=== PATIENT | female | born 1970 | race Caucasian/White ===

== ENCOUNTER → 2016-06-25 | Outpatient (CLI) | payer OTHER ==
[2016-06-25 13:14] LABS: ALT/SGPT 21 U/L (12-78); BLOOD UREA NITROGEN 31 mg/dl (7-18); BUN/CREATININE RATIO 25.6 (10-20); CALCIUM 8.9 mg/dl (8.5-10.1); CARBON DIOXIDE 27 mmol/L (21-32); CHLORIDE 104 mmol/L (98-107); GLUCOSE 71 mg/dl (70-99); POTASSIUM 4.6 mmol/L (3.5-5.1); SODIUM 142 mmol/L (136-145); URIC ACID 4.1 mg/dl (2.6-7.2)
[2016-06-25 13:20] LABS: HEMATOCRIT 63.1 % (37-47); MEAN CELL VOLUME 116.2 fL (80-100); MEAN CORPUSCULAR HEMOGLOBIN 41.1 pg (25-34); MEAN CORPUSCULAR HGB CONC 35.3 g/dl (32-36); MEAN PLATELET VOLUME 13.5 fL (7.4-10.4); PLATELET COUNT 92 K/uL (130-400); RED BLOOD COUNT 5.43 M/uL (4.2-5.4); WHITE BLOOD COUNT 4.17 K/uL (4.8-10.8)
[2016-06-25 13:21] LABS: BASO % 0.7 %; BASO ABS # 0.03 K/uL (0-0.2); COMPLETE YES; EOS % 1.4 %; IG% 0.2 %; LYMPH % 15.1 %; LYMPH ABS # 0.63 K/uL (1.2-3.4); MONO % 4.3 %; NEUT % 78.3 %
[2016-06-25 13:27] LABS: ALB/GLOB RATIO 0.6 (0.9-2); ALKALINE PHOSPHATASE 96 U/L (45-117); AST/SGOT 34 U/L (15-37)
== END | disposition home or self-care (01) ==
LOC: C.LABPBG 09:17
PROVIDERS: ATTEND Internal Medicine
DX: D69.6 Thrombocytopenia, unspecified (principal); M10.9 Gout, unspecified

== ENCOUNTER → 2016-06-30 | Outpatient (CLI) | payer OTHER | END | disposition home or self-care (01) | LOC: C.LABPBG 15:11 | PROVIDERS: ATTEND Internal Medicine | DX: D69.6 Thrombocytopenia, unspecified (principal) ==

== ENCOUNTER → 2016-08-11 | Outpatient (CLI) | payer OTHER | END | disposition home or self-care (01) | LOC: C.LABPBG 14:06 | PROVIDERS: ATTEND Internal Medicine | DX: E03.9 Hypothyroidism, unspecified (principal) ==

== ENCOUNTER → 2017-08-10 | Outpatient (CLI) | payer OTHER ==
[2017-08-10 18:12] LABS: BLOOD UREA NITROGEN 51 mg/dl (7-18); CALCIUM 8.6 mg/dl (8.5-10.1); CARBON DIOXIDE 35 mmol/L (21-32); GLUCOSE 114 mg/dl (70-99); POTASSIUM 3.8 mmol/L (3.5-5.1); SODIUM 139 mmol/L (136-145)
== END | disposition home or self-care (01) ==
LOC: C.LABPBG 10:36
PROVIDERS: ATTEND Internal Medicine
DX: I50.9 Heart failure, unspecified (principal); I27.83 Eisenmenger's syndrome

== ENCOUNTER 2018-11-15 10:47 | Inpatient (IN) ==
[2018-11-15] MEDS ORDERED: ONDANSETRON INJ 2 MG/ML 2 ML VIAL IV STA (11:22)
[2018-11-15 11:59] LABS: Hematocrit (blood only) 69.4 % (37-47); Hemoglobin 24.5 g/dL (12.0-16.0); Mean Corpuscular Hgb Conc 35.3 g/dL (32-36); Mean Corpuscular Volume 114.3 fL (80-100); RDW Coefficient of Variation 16.4 % (11.5-14.5); RDW Standard Deviation 69.5 fL (36.4-46.3); Red Blood Count 6.07 M/uL (4.2-5.4); White Blood Count 3.86 K/uL (4.8-10.8)
[2018-11-15 12:05] LABS: Albumin Level 3.1 gm/dl (3.4-5.0); BUN Creatinine Ratio 21.4 (10-20); Calcium 9.3 mg/dl (8.5-10.1); Creatinine Clr Calc Pharmacy 32.7 ml/min; Est GFR (African American) 39.8; Est GFR (Non-African American) 34.3; Magnesium 2.4 mg/dl (1.8-2.4)
--- NOTE | 2018-11-15 12:06 | Emergency Department Note ---
Entered by Lanette Cabrera acting as a scribe for History of Present Illness General Chief complaint: Illness Time Seen by Provider: 11/15/18 11:19 Source: patient, family and other (nursing staff) History of Present Illness Provider complaint: respiratory distress Onset (ago): hour(s) (today) Location: chest Pain Consistency: + intermittent Quality: + other (respiratory distress) Associated symptoms: + denies other symptoms (abdominal pain) and + other (dizziness) The patient is a 48 year old female who presents to the Emergency Department with complaints of respiratory distress today. Per family, the patient complained of dizziness but did not have abdominal pain today. Per nursing staff, the patient has a history of a hole in her heart and heart failure. Nursing staff states that the patient had 2 episodes of respira tory distress today and projectile vomited once. Her family states that Dr. Hanley does not think that the patient needs to follow with a curling machine operator anymore as nothing can be done. Per family, the patient has a VSD and a history of pulmonary hypertension. Per family, the patient has a history of 2 cardiac catheterizations but did not get any stents placed. The patient denies a history of abdominal surgeries. Home Medications Home Medications Medication Instructions Recorded Confirmed Type allopurinol 300 mg PO DAILY 11/15/18 11/15/18 History cholecalciferol (vitamin D3) 2,000 unit PO DAILY 11/15/18 11/15/18 History [Vitamin D3] clindamycin HCl 150 mg PO DIRECTED 11/15/18 11/15/18 History levothyroxine 100 mcg PO DAILY 11/15/18 11/15/18 History multivitamin 1 tab PO DAILY 11/15/18 11/15/18 History sodium chloride [Saline Nasal] 1 spray INTRANASAL DAILY 11/15/18 11/15/18 History torsemide 20 mg PO DAILY 11/15/18 11/15/18 History Allergies Allergy/AdvReac Type Severity Reaction Status Date / Time Penicillins Allergy Rash Unverified 11/15/18 12:04 Past Med/Surg History Medical History Pulmonary hypertension (Acute) Down syndrome (Chronic) VSD (ventricular septal defect) (Chronic) Pulmonary hyperinflation (Resolved) Social History Preferred Language: Yakut Current Living Situation: Family Feels Safe at Home: Yes Smoking Status: Never smoker Review of Systems See HPI for pertinent positives & negatives. and A total of 10 systems reviewed and were otherwise negative Physical Exam Vital Signs Vital Signs - 24 hr 11/15/18 11:00 11/15/18 11:58 Temperature 36.4 C L Temperature Source Axillary Sepsis Recent Fever Within 48 Hours No Sepsis New/Unexplained Change in Mental Status No Sepsis Action Taken by Nursing No Action Required Pulse Rate 63 Pulse Rate [Apical] 63 Pulse Rhythm Regular Pulse Rhythm [Apical] Regular Pulse Strength Normal Pulse Strength [Apical] Normal Respiratory Rate 22 18 Respiratory Effort / Characteristics Non-Labored Spontaneous Non-Labored Spontaneous Respiratory Depth Normal Normal Respiratory Pattern Regular Regular Blood Pressure 124/76 Blood Pressure [Right Arm] 115/75 Blood Pressure Mean 92 Blood Pressure Mean [Right Arm] 88 Blood Pressure Position Sitting Blood Pressure Position [Right Arm] Sitting Pulse Oximetry 58 L 63 L Oxygen Delivery Method Room Air Room Air GENERAL: Patient is awake and alert. She is somewhat anxious appearing but appears to be comfortable. EYES: The conjunctivae are clear. The pupils are round and reactive. EARS, NOSE, MOUTH AND THROAT: The nose is without any evidence of any deformity. Mucous membranes are moist tongue is midline. Central cyanosis was noted especially around the perioral region. NECK: The neck is nontender and supple. RESPIRATORY: Diminished breath sounds are noted throughout. There are rales at both bases. CARDIOVASCULAR: Regular rate and rhythm was noted to auscultation. There was a systolic murmur suggested. GASTROINTESTINAL: The abdomen is soft. Bowel sounds are present in all quadrants. Abdomen is nontender MUSCULOSKELETAL/EXTREMITIES: There is no evidence of gross deformity full range of motion is noted in the hips and shoulders SKIN: There is no obvious evidence of any rash. Venous stasis and chronic cyanosis was noted in both upper and lower extremities. Trace pedal edema was noted. NEUROLOGIC: Patient is awake and alert. She is oriented to person place and situation. She appears to be at her baseline mental status according to her parents. Course 1118: The patient was evaluated in room C10. A history and physical were performed. 1215: I updated the patient's family who verbalized agreement and understanding of the treatment plan. 1224: I discussed the patient's case with Dr. Rafaela Jaimes who will evaluate the patient for further management. Consultations Consultation #1: Dr. Rafaela Jaimes Time: 12:24 Administered Medications Discontinued Medications Ondansetron HCl (Zofran) 4 mg IV NOW STA Stop: 11/15/18 11:23 Last Admin: 11/15/18 11:56 Dose: Not Given Documented by: [id number] Medical Decision Making Differential Diagnosis Differential diagnosis: Etiologies such as infections, reactive airway disease, COPD, pneumonia, pleural effusion, pulmonary edema, ARDS, pneumothorax, CHF, cardiac ischemia, cardiac tamponade, dysrhythmia, anemia, pulmonary embolism, musculoskeletal, gastrointestinal process, as well as others were entertained. . Medical Records Attestation: I reviewed the patient's medical records. Home Medications Current Medication List: was personally reviewed by me Laboratory Data Attestation: I reviewed the patient's lab results. Result diagrams: 11/15/18 11:20 11/15/18 11:20 Lab Results 11/15/18 11/15/18 11/15/18 Range/Units 11:20 11:20 11:20 WBC 3.86 L (4.8-10.8) K/uL RBC 6.07 H (4.2-5.4) M/uL Hgb 24.5 H (12.0-16.0) g/dL Hct 69.4 H (37-47) % MCV 114.3 H (80-100) fL MCH 40.4 H (25-34) pg MCHC 35.3 (32-36) g/dL RDW Std Deviation 69.5 H (36.4-46.3) fL RDW Coeff of Jenny 16.4 H (11.5-14.5) % Plt Count 53 L (130-400) K/uL Absolute Nucleated RBC 0.02 H (0-0) K/uL Nucleated RBC % (auto) 0.4 % Neutrophils % (Manual) 90.0 % Lymphocytes % (Manual) 6.0 % Monocytes % (Manual) 1.0 % Eosinophils % (Manual) 3.0 % Neutrophils # (Manual) 3.47 (1.4-6.5) K/uL Total Absolute Neuts 3.47 (1.4-6.5) K/uL Lymphocytes # (Manual) 0.23 L (1.2-3.4) K/uL Total Abs Lymphocytes 0.23 L (1.2-3.4) K/uL Monocytes # (Manual) 0.04 L (0.11-0.59) K/uL Eosinophils # (Manual) 0.12 (0-0.5) K/uL Giant Platelets 1+ Macrocytosis Present PT Cancelled INR Cancelled APTT Cancelled PTT Ratio Cancelled Sodium 140 (136-145) mmol/L Potassium 5.0 (3.5-5.1) mmol/L Chloride 105 (98-107) mmol/L Carbon Dioxide 24 (21-32) mmol/L Anion Gap 11.0 (3-11) BUN 37 H (7-18) mg/dl Creatinine 1.73 H (0.6-1.2) mg/dl Est Cr Clr Drug Dosing 32.7 ml/min Est GFR ( Amer) 39.8 Est GFR (Non-Af Amer) 34.3 BUN/Creatinine Ratio 21.4 H (10-20) Glucose 124 H (70-99) mg/dl Calcium 9.3 (8.5-10.1) mg/dl Magnesium 2.4 (1.8-2.4) mg/dl Total Bilirubin 0.8 (0.2-1) mg/dl AST 35 (15-37) U/L ALT 34 (12-78) U/L Alkaline Phosphatase 124 H (45-117) U/L Troponin I 0.029 (0-0.045) ng/ml NT-Pro-B Natriuret Pep 3136 H (0-450) pg/ml Total Protein 7.6 (6.4-8.2) gm/dl Albumin 3.1 L (3.4-5.0) gm/dl Globulin 4.5 H (2.5-4.0) gm/dl Albumin/Globulin Ratio 0.7 L (0.9-2) Specimen Hemolysis Imaging Data Radiologist's Impression: Radiology results as stated below per my review and the radiologist's interpretation: SINGLE VIEW CHEST CLINICAL HISTORY: Dyspnea. FINDINGS: An AP, portable, upright chest radiograph is obtained. No prior studies are available for comparison at the time of dictation. The examination is degraded by portable technique and patient rotation. The heart appears enlarged. Mild atherosclerotic calcification is noted in the thoracic aorta. There is pulmonary vascular congestion. Airspace opacities are seen in the lower lobes. No large pleural effusion or pneumothorax is seen. The bony thorax is grossly intact. IMPRESSION: 1. The heart appears mildly enlarged and there is evidence of pulmonary vascular congestion. 2. Airspace opacities are present in the lower lobes. A component of interstitial edema is favored. Correlate clinically for evidence of a superimposed infectious/inflammatory pneumonitis. Electronically signed by: Dre Hidalgo M.D. 11/15/2018 12:10 PM ECG Data Attestation: I personally reviewed and interpreted this ECG as follows: Indication: SOB/dyspnea Rate (beats per minute): 65 Rhythm: sinus bradycardia Findings: + other (diffuse t wave flattening) and + 1st degree AV block; no PAC, no PVC and no ectopy Comparison ECG Date: no prior available Blood Pressure Blood Pressure Findings: Normal blood pressure MDM Narrative The patient is a 48-year-old female who presented to the emergency department with her parents for an evaluation of shortness of breath. The patient has a history of a VSD with decompensated heart failure because of this. She presented to the emergency department very hypoxic and cyanotic. She was treated with IV Lasix in the emergency department. I discussed the patient's laboratory and radiographic studies with her and her parents. I reviewed the patient's laboratory results would suggest that she does have a long history of underlying hypoxia given her elevated hemoglobin. I would wonder if the patient could be medically managed any further. For this reason I discussed her case with the on-call [facility] hospitalist. They have agreed to evaluate the patient in the emergency department for possible further evaluation and inpatient management. Impression & Plan Pulmonary edema, Hypoxia Discharge Plan Visit Data Chief Complaint: Illness ED Provider: Jose Griggs Discharge Problem: Pulmonary edema, Hypoxia Patient Disposition: Being Evaluated by Hospitalist Forms Stand Alone Forms: [facility] Prescriptions Prescriptions: No Action multivitamin Tablet 1 tab PO DAILY RF: 0 torsemide 20 mg tablet 20 mg PO DAILY RF: 0 clindamycin HCl 150 mg Capsule 150 mg PO DIRECTED RF: 0 levothyroxine 100 mcg tablet 100 mcg PO DAILY RF: 0 allopurinol 300 mg tablet 300 mg PO DAILY RF: 0 sodium chloride [Saline Nasal] 0.65 % Aerosol,Wellpinit 1 spray INTRANASAL DAILY RF: 0 cholecalciferol (vitamin D3) [Vitamin D3] 2,000 unit Capsule 2,000 unit PO DAILY RF: 0 Referrals Referrals: Sandeep Hanley MD [Primary Care Provider] - Discharge Problem: Pulmonary edema Qualifiers: Chronicity: acute Qualified Code(s): J81.0 - Acute pulmonary edema The scribe's documentation has been prepared under my direction and personally reviewed by me in its entirety. I confirm that the note above accurately reflects all work, treatment, procedures, and medical decision making performed by me.
[2018-11-15 12:07] LABS: Albumin Globulin Ratio 0.7 (0.9-2); Bilirubin,Total 0.8 mg/dl (0.2-1); Globulin 4.5 gm/dl (2.5-4.0); Total Protein 7.6 gm/dl (6.4-8.2); Troponin I 0.029 ng/ml (0-0.045)
[2018-11-15 12:10] LABS: ALC (manual) 0.23 K/uL (1.2-3.4); Eosinophils # (manual) 0.12 K/uL (0-0.5); Giant Platelets 1+; Lymphocytes # (manual) 0.23 K/uL (1.2-3.4); Macrocytosis Present; Monocytes # (manual) 0.04 K/uL (0.11-0.59); Nucleated RBC # (auto) 0.02 K/uL (0-0); Nucleated RBC % (auto) 0.4 %; Platelet Count 53 K/uL (130-400)
--- NOTE | 2018-11-15 12:12 | XRay Report ---
SINGLE VIEW CHEST CLINICAL HISTORY: Dyspnea. FINDINGS: An AP, portable, upright chest radiograph is obtained. No prior studies are available for c omparison at the time of dictation. The examination is degraded by portable technique and patient rot ation. The heart appears enlarged. Mild atherosclerotic calcification is noted in the thoracic aorta . There is pulmonary vascular congestion. Airspace opacities are seen in the lower lobes. No large pl eural effusion or pneumothorax is seen. The bony thorax is grossly intact. IMPRESSION: 1. The heart appears mildly enlarged and there is evidence of pulmonary vascular congestion. 2. Airspace opacities are present in the lower lobes. A component of interstitial edema is favored. C orrelate clinically for evidence of a superimposed infectious/inflammatory pneumonitis. Electronically signed by: Dre Hidalgo M.D. 11/15/2018 12:10 PM
[2018-11-15] MEDS ORDERED: FUROSEMIDE 40 MG in SYRINGE 0 ML IV ONE (12:14)
--- NOTE | 2018-11-15 14:29 | History & Physical Report ---
Date of Service November 15, 2018 Assessment & Plan (1) Pulmonary edema: Likely related to progressive VSD Improving s/p IVF in the ED Turosemide dosing had been QOD due to concerns about dehydration on QD, possibly move to decreased dosing at QD vs need for stable dosing QD Can determine s/p ECHO, pending Will use turosemide 20mg QD for now (20mg OQD outpt) (2) Elevated troponin: Likely related to demand ischemia from pulmonary edema EKG neg for acute Serial trops pending (3) Hypoxia: Related to above and improving s/p lasix (4) Down's syndrome: Stable Lives with parents Requests DNR/DNI and parents state it is her decision Does not have living will completed and advised them to do so during admission (5) VSD (ventricular septal defect): As noted above (6) Gout: continue home meds (7) Hypothyroid: continue home meds TSH pending (8) Pulmonary HTN: continue home meds (9) DVT prophylaxis: SCDs History of Present Illness Primary Care Provider: Sandeep Hanley MD 48 y/o F c/o SOB. Pt has had a cough for the last few days that has been gra dually worsening. Parents thought it was due to allergies as [place] and pollen has been quite high this year, however it continued to worsen and then today while they were in the car, pt became frankly SOB. They called an ambulance. She did have an episode of emesis today with some abd pain, but none prior to this. Zofran in the ambulance has helped and she no longer has n/v/abd pain. Pt has no prior hx of breathing issues. She does have a known VSD and has been on turosemide for about the last year related to LE swelling. She was initially prescribed for QD dosing, however she became dehydrated with this and it was changed to QOD dosing. Her LE swelling has not been an issue with the decreased dosing. Pt denies fever, chest pain, c/d, LE pain. Pt was given lasix in the ED and is feeling much improved. No longer SOB or even coughing. Allergies Allergy/AdvReac Type Severity Reaction Status Date / Time Penicillins Allergy Rash Unverified 11/15/18 12:04 Home Medications Home Medications Medication Instructions Recorded Confirmed Type allopurinol 300 mg PO DAILY 11/15/18 11/15/18 History cholecalciferol (vitamin D3) 2,000 unit PO DAILY 11/15/18 11/15/18 History [Vitamin D3] clindamycin HCl 150 mg PO DIRECTED 11/15/18 11/15/18 History levothyroxine 100 mcg PO DAILY 11/15/18 11/15/18 History multivitamin 1 tab PO DAILY 11/15/18 11/15/18 History sodium chloride [Saline Nasal] 1 spray INTRANASAL DAILY 11/15/18 11/15/18 History torsemide 20 mg PO DAILY 11/15/18 11/15/18 History Past Med/Surg History Medical History Pulmonary hypertension (Acute) Down syndrome (Chronic) VSD (ventricular septal defect) (Chronic) Pulmonary hyperinflation (Resolved) Family History Grandfather CHF (congestive heart failure) Social History Preferred Language: Malay Current Living Situation: Family Feels Safe at Home: Yes Smoking Status: Never smoker Hx Alcohol Use: Yes (wine once a week) Hx Substance Use: No Review of Systems Review of Systems: Pertinent positives and negatives reviewed in HPI--all others negative Physical Exam Constitutional: WD/WN, vitals as above Eyes: normal visual garcia by confrontation and + anicteric sclerae Neck: normal visual inspection and trachea midline Respiratory: normal respiratory effort; no respiratory distress Auscultation: + crackles (b/l bases) Cardiovascular: Rate/Rhythm: regular rate and regular rhythm Gastrointestinal (Abdomen): Inspection/Auscultation: abdomen not distended Percussion/Palpation: abdomen soft; abdomen nontender Musculoskeletal: Head/Neck/Chest: normocephalic and head atraumatic negative for edema, peripheral pulses intact Skin: Warm and dry Deep red discoloration to face--nose and cheeks, as well as hands and feet into lower LE Neurologic: awake; not confused Speech / Cognition: normal speech Psychiatric: A+Ox3, euthymic affect Results & Data Vital Signs (Past 12 Hours) Vital Signs Temp Pulse Pulse Resp BP BP Pulse Ox 11/15/18 13:35 74 20 135/95 69 L 11/15/18 11:58 63 18 115/75 63 L 11/15/18 11:00 36.4 C L 63 22 124/76 58 L Diagnostic Findings CXR: b/l pulmonary edema ECG Additional Comments: PVCs, bigeminy Code Status & VTE Plan Code Status DNR/DNI per pt Parents are present and state that it is her decision They have never discussed this with pt and she has no living will VTE Prophylaxis Plan VTE Prophylaxis will be ordered: Yes (1) Pulmonary edema Chronicity: acute Qualified Code(s): J81.0 - Acute pulmonary edema
[2018-11-15] MEDS ORDERED: CLINDAMYCIN HCL 150 MG CAP PO SCH (15:35)
[2018-11-15] MEDS ORDERED: ACETAMINOPHEN 325 MG TAB PO PRN (15:35)
[2018-11-15] MEDS ORDERED: MAGNESIUM HYDROXIDE SUSP 30 ML UDC PO PRN (15:35)
[2018-11-15] MEDS ORDERED: ONDANSETRON INJ 2 MG/ML 2 ML VIAL IV PRN (15:35)
[2018-11-15 20:10] LABS: Appearance Urine Clear (Clear); Bacteria Urine Automated Negative (Negative); Bilirubin Urine Negative (Negative); Blood Urine Trace (Negative); Color Urine Yellow; Epithelial Cell Urine Auto >30 /lpf (0-5); Glucose Urine UA Negative (Negative); Ketones Urine Negative (Negative); Leukocyte Esterase Urine Negative (Negative); Nitrite Urine Negative (Negative); Protein Urine 1+ (Negative); RBC Urine Automated 0-4 /hpf (0-4); Specific Gravity Urine 1.015 (1.000-1.030); Urobilinogen Urine Negative (Negative)
[2018-11-16] MEDS: LEVOTHYROXINE SODIUM 100 MCG TABLET PO SCH (06:13)
[2018-11-16 06:37] LABS: Hematocrit (blood only) 64.9 % (37-47); Hemoglobin 23.3 g/dL (12.0-16.0); Mean Corpuscular Volume 112.5 fL (80-100); RDW Coefficient of Variation 16.1 % (11.5-14.5); RDW Standard Deviation 65.5 fL (36.4-46.3); Red Blood Count 5.77 M/uL (4.2-5.4); White Blood Count 5.89 K/uL (4.8-10.8)
[2018-11-16 06:42] LABS: Mean Corpuscular Hgb Conc 35.9 g/dL (32-36); Mean Platelet Volume 11.5 fL (7.4-10.4); Platelet Count 40 K/uL (130-400)
[2018-11-16 07:21] LABS: Basophils # (auto) 0.03 K/uL (0-0.2); Basophils % (auto) 0.5 %; Eosinophils # (auto) 0.02 K/uL (0-0.5); Eosinophils % (auto) 0.3 %; Giant Platelets 1+; Immature Granulocytes # (auto) 0.02 K/uL (0.00-0.02); Immature Granulocytes % (auto) 0.3 %; Lymphocytes # (auto) 0.92 K/uL (1.2-3.4); Lymphocytes % (auto) 15.6 %; Macrocytosis Present; Monocytes # (auto) 0.46 K/uL (0.11-0.59); Monocytes % (auto) 7.8 %; Neutrophils # (auto) 4.44 K/uL (1.4-6.5); Neutrophils % (auto) 75.5 %
[2018-11-16 07:36] LABS: BUN Creatinine Ratio 20.3 (10-20); Calcium 8.7 mg/dl (8.5-10.1); Creatinine Clr Calc Pharmacy 28.1 ml/min; Est GFR (African American) 33.8; Est GFR (Non-African American) 29.1; Potassium 4.8 mmol/L (3.5-5.1)
[2018-11-16] MEDS: TORSEMIDE 10 MG TAB PO SCH (08:37)
[2018-11-16] MEDS: MULTIVITAMIN TAB PO SCH (08:37)
[2018-11-16] MEDS: ALLOPURINOL 300 MG TAB PO SCH (08:37)
[2018-11-16] MEDS: CHOLECALCIFEROL 1,000 UNITS TAB PO SCH (08:38)
--- NOTE | 2018-11-16 09:04 | Hospitalist Progress Note ---
Date of Service November 16, 2018 Assessment & Plan (1) Pulmonary edema: Likely related to progressive VSD Improving s/p IVF in the ED Turosemide dosing had been QOD due to concerns about dehydration on QD, possibly move to decreased dosing at QD vs need for stable dosing QD Can determine s/p ECHO, concern to have possible valvular vegitation Will use turosemide 20mg QD for now (20mg OQD outpt) will have additional dose of lasix 20 mg ivp order ESR and blood cultures will be ordered (2) Elevated troponin: Likely related to demand ischemia from pulmonary edema EKG neg for acute Serial trops pending (3) Hypoxia: Related to above and improving s/p lasix, has vsd with high pulmonary pressures and equilizaiton of pressure in left and right ventricle, will always have a hypoxic saturation (4) Down's syndrome: Stable Lives with parents, they are updated at the bedside Requests DNR/DNI and parents state it is her decision Does not have living will completed and advised them to do so during admission (5) VSD (ventricular septal defect): As noted above (6) Gout: continue home meds (7) Hypothyroid: continue home meds TSH pending (8) Pulmonary HTN: continue home meds (9) DVT prophylaxis: SCDs Subjective this pt is without complaints, she is cyanotic but pleasant, cardiology is concerned about possible valvular abnormality. family is at bedside and updated Review of Systems Constitutional: + fatigue and + weakness Respiratory: no cough, no chest congestion and no dyspnea Cardiovascular: no chest pain and no dyspnea on exertion Gastrointestinal: no abdominal pain, no nausea and no vomiting Musculoskeletal: no joint pain and no swelling Integumentary: no rash and no lesions Physical Exam Constitutional: well developed and average body habitus Eyes: no conjunctival abnormality and no scleral abnormality Neck: normal visual inspection and trachea midline Respiratory: + respiratory distress; + abnormal respiratory effort Auscultation: + crackles and + rales Cardiovascular: Rate/Rhythm: regular rate Heart Sounds: + murmur Gastrointestinal (Abdomen): normal bowel sounds, soft, nontender, no hepatosplenomegaly Musculoskeletal: Extremities: + cyanosis; full ROM of extremities Results & Data Vital Signs (Past 12 Hours) Vital Signs Temp Pulse Pulse Resp BP Pulse Ox 11/16/18 03:27 36.4 C L 74 19 129/82 64 L 11/15/18 23:50 74 L 11/15/18 23:38 36.6 C 73 19 136/85 69 L (1) Pulmonary edema Chronicity: acute Qualified Code(s): J81.0 - Acute pulmonary edema
[2018-11-16] MEDS: SODIUM CHLORIDE 0.65% NA SOLN 45 ML (OCEAN) SCH (09:55)
[2018-11-16] MEDS ORDERED: FUROSEMIDE 20 MG in SYRINGE 0 ML IV ONE (17:45)
--- NOTE | 2018-11-16 18:06 | Cardiology Consultation ---
Date of Consultation November 16, 2018 Assessment & Plan (1) Eisenmenger's syndrome due to congenital ventricular septal defect: When taking torsemide 20 mg daily, she felt lightheaded and on every other day dosing, she became more short of breath. With diuresis here, she has improved symptomatically. Would recommend another dose of IV Lasix this afternoon. When she is discharged in the future, could consider torsemide 20 mg alternating with 10 mg daily. Low-sodium diet. On exam, she is not significantly hypervolemic, but she may benefit from a symptomatic standpoint with further diuresis. Nursing staff was asked to use filter with any type of intravenous administration to filter out air bubbles, which could become systemic given Eisenmenger physiology. (2) VSD (ventricular septal defect): She has uncorrected perimembranous VSD. She has declined aggressive measures in the past according to records. (3) Pulmonary HTN: Severe pulmonary hypertension from VSD, now with Eisenmenger's physiology. She has declined vasodilators in the past. She no longer wanted to follow with adult congenital heart disease physician. She prefers to follow with Dr. Hanley. (4) Pericardial effusion: Likely related to severe pulmonary hypertension. Poor prognosis. (5) Aortic valve disorder: Possible vegetation. Recommend blood cultures and ESR. We discussed potential of undergoing transesophageal echo however she declines. Her mother agrees with her. If she is found to have positive blood cultures, would r ecommend 6 weeks of antibiotic therapy if agreeable by patient and her family. Disposition: Cardiology will continue to follow. Plan of care discussed with Dr. Lopez of the primary hospitalist service. Highly complex medical issues. Thank you for allowing me to participate in the care of your patient. Please call for any other questions or concerns. Sincerely, Best Rowan M.D. History of Present Illness Reason for Consultation: VSD and persistent hypoxia Requesting Physician: Dr. Lopez Attending Physician: Carlin Lopez MD History of Present Illness Ms. Larry is a very pleasant 48-year-old female with a history significant for unrepaired VSD with Eisenmenger's syndrome, pulmonary hypertension, and Down syndrome. She was last seen by adult congenital heart disease physician at [facility] in September of 2012 and more recently has been seen by Dr. Velez with [facility] cardiology. She has not been regularly following with Cardiology as Dr. Hanley has been managing her cardiac conditions. She has chosen to pursue less aggressive treatment. She presented to [facility] on 11/15/2018 with worsening shortness of breath. She has had worsening shortness of breath and nonproductive cough for the past few days. There has not been any documented fever. She typically has cyanotic nail beds and facial features. She is a poor historian and unable to give any details of her symptoms and often asked her mother to help answer some of the questions. Her motherAnd father were present at the bedside. They agree that she had appeared more short of breath the past few days. She sounded congested but was unable to bring up any sputum. Near the end of 2017, she had worsening edema but this improved with diuretics. Sin ce then, she developed lightheadedness and diuretic therapy was reduced to torsemide 20 mg every other day, when she had been taking it on a daily basis. She did well with this regimen for some time until recently. Her parents agree that she looks much better now than she did on presentation. She agrees that her breathing has improved. She denies pain, palpitations, syncope. She has developed lower extremity varicose veins, especially in the left lower extremity. Her mother reports that she has had 2 cardiac catheterizations in the past and after each, she developed pneumonia. Since then, she has not been willing to undergo invasive measures. Dr. Cox has offered vasodilators in the past for her pulmonary hypertension but she had declined. Review of systems: As above. Review of systems otherwise negative/unremarkable or unobtainable, as she is a poor historian. Social history: She does not smoke. One glass of wine per week. She lives with her mother and father, who were present at the bedside. She has no siblings. Her father is an [employer] division supervisor. Family history: No known congenital heart disease. Allergies Allergy/AdvReac Type Severity Reaction Status Date / Time Penicillins Allergy Rash Unverified 11/15/18 12:04 Home Medications Home Medications Medication Instructions Recorded Confirmed Type allopurinol 300 mg PO DAILY 11/15/18 11/15/18 History cholecalciferol (vitamin D3) 2,000 unit PO DAILY 11/15/18 11/15/18 History [Vitamin D3] clindamycin HCl 150 mg PO DIRECTED 11/15/18 11/15/18 History levothyroxine 100 mcg PO DAILY 11/15/18 11/15/18 History multivitamin 1 tab PO DAILY 11/15/18 11/15/18 History sodium chloride [Saline Nasal] 1 spray INTRANASAL DAILY 11/15/18 11/15/18 History torsemide 20 mg PO DAILY 11/15/18 11/15/18 History Patient History Medical History Pulmonary hypertension (Acute) Down syndrome (Chronic) VSD (ventricular septal defect) (Chronic) Pulmonary hyperinflation (Resolved) Eisenmenger's syndrome due to congenital ventricular septal defect Family History Grandfather CHF (congestive heart failure) Social History Preferred Language: Turkmen Communication Ability: Effective Sleeper Cutter Required: No Beliefs That Will Affect Care: None marital status: Single Current Living Situation: Family Other Information That Helps Us Care for You: No Feels Safe at Home: Yes Smoking Status: Never smoker Hx Alcohol Use: Yes (wine once a week) Alcohol type: wine Hx Substance Use: No Physical Exam Physical Exam: Gen.: No acute distress. Alert. HEENT: Anicteric sclera. Cyanotic lips/nose. Neck: No JVD. No bruits. Normal carotid upstrokes bilaterally. Cardiac: PMI was nondisplaced. Possible RV heave. Regular. Normal S1-S2. 2/6 systolic and diastolic murmur best heard at the left lower sternal border and apex. No rubs, or gallops. Pulmonary: Clear to auscultation bilaterally without wheezes, rales, or rhonchi. Abdomen: Soft, nontender, nondistended, with normoactive bowel sounds. No bruits noted. Extremities: 2+ radial pulses bilaterally. 2+ dorsalis pedis pulses bilaterally. No significant pitting edema. Extensive left lower extremity varicose veins. Mild right varicose veins. Cyanotic nail beds. Clubbing noted of fingers. Psychiatric: Affect appears appropriate. Results & Data Vital Signs (Past 12 Hours) Vital Signs Temp Pulse Resp BP Pulse Ox 11/16/18 15:38 37.3 C 64 22 116/68 66 L 11/16/18 11:56 36.4 C L 89 17 116/75 68 L Intake & Output 11/14/18 11/15/18 11/16/18 11/17/18 06:59 06:59 06:59 06:59 Intake Total 120 / 120 350 / 350 Output Total 850 / 850 Balance -730 / -730 350 / 350 Weight 59.7 kg Laboratory Results Laboratory Results - last 24 hr 11/15/18 11/15/18 11/16/18 19:48 20:36 06:16 WBC 5.89 RBC 5.77 H Hgb 23.3 H Hct 64.9 H MCV 112.5 H MCH 40.4 H MCHC 35.9 RDW Std Deviation 65.5 H RDW Coeff of Jenny 16.1 H Plt Count 40 L MPV 11.5 H Immature Gran % (Auto) 0.3 Neut % (Auto) 75.5 Lymph % (Auto) 15.6 [place] % (Auto) 7.8 Eos % (Auto) 0.3 Baso % (Auto) 0.5 Immature Gran # (Auto) 0.02 Neut # (Auto) 4.44 Lymph # (Auto) 0.92 L [place] # (Auto) 0.46 Eos # (Auto) 0.02 Baso # (Auto) 0.03 Giant Platelets 1+ Macrocytosis Present ESR Sodium Potassium Chloride Carbon Dioxide Anion Gap BUN Creatinine Est Cr Clr Drug Dosing Est GFR ( Amer) Est GFR (Non-Af Amer) BUN/Creatinine Ratio Glucose Calcium Troponin I 0.044 TSH Specimen Hemolysis Urine Color Yellow Urine Appearance Clear Urine pH 5.0 Ur Specific [place] 1.015 Urine Protein 1+ H Urine Glucose (UA) Negative Urine Ketones Negative Urine Blood Trace H Urine Nitrite Negative Urine Bilirubin Negative Urine Urobilinogen Negative Ur Leukocyte Esterase Negative Urine WBC (Auto) 1-5 Urine RBC (Auto) 0-4 U Hyaline Cast (Auto) 5-10 H U Epithel Cells (Auto) >30 H Urine Bacteria (Auto) Negative 11/16/18 11/16/18 06:16 17:50 WBC RBC Hgb Hct MCV MCH MCHC RDW Std Deviation RDW Coeff of Jenny Plt Count MPV Immature Gran % (Auto) Neut % (Auto) Lymph % (Auto) [place] % (Auto) Eos % (Auto) Baso % (Auto) Immature Gran # (Auto) Neut # (Auto) Lymph # (Auto) [place] # (Auto) Eos # (Auto) Baso # (Auto) Giant Platelets Macrocytosis ESR 12 Sodium 139 Potassium 4.8 Chloride 105 Carbon Dioxide 28 Anion Gap 6.0 BUN 40 H Creatinine 1.98 H Est Cr Clr Drug Dosing 28.1 Est GFR ( Amer) 33.8 Est GFR (Non-Af Amer) 29.1 BUN/Creatinine Ratio 20.3 H Glucose 75 Calcium 8.7 Troponin I TSH 1.820 Specimen Hemolysis Urine Color Urine Appearance Urine pH Ur Specific [place] Urine Protein Urine Glucose (UA) Urine Ketones Urine Blood Urine Nitrite Urine Bilirubin Urine Urobilinogen Ur Leukocyte Esterase Urine WBC (Auto) Urine RBC (Auto) U Hyaline Cast (Auto) U Epithel Cells (Auto) Urine Bacteria (Auto) Diagnostic Findings Telemetry personally reviewed: Sinus rhythm. ECG personally reviewed: ECG 11/15/2018: Sinus rhythm with first-degree AV block. Right atrial enlargement. Nonspecific T-wave abnormality. Inferior infarct. Poor R-wave progression. Echo 11/16/2018: 1. Low-normal left ventricular size with normal systolic function. EF 65-70%. No regional wall motion abnormalities. Septal flattening during diastole and systole suggest right ventricular volume and pressure overload. Moderate left ventricular hypertrophy of the anteroseptum. 2. Moderately dilated right ventricle with normal systolic function. Severe right ventricular hypertrophy. 3. The right atrium is mildly dilated. 4. There is a large mobile echodensity which appears attached to the ventricular side of the aortic valve; possible vegetation/mass. 5. Mild to moderate pulmonic valvular regurgitation. 6. Large perimembranous VSD. 7. Small apical pericardial effusion without echocardiographic evidence of tamponade physiology. 8. Severe pulmonary hypertension. Estimated RVSP 103mmHg. Chest x-ray 11/15/2018: Pulmonary vascular congestion. Air space opacities lower lobe. Per Radiology. Medications Administered Current Inpatient Medications Acetaminophen (Tylenol) 650 mg PO Q4H PRN PRN Reason: Pain or Fever Stop: 12/15/18 15:34 Allopurinol (Zyloprim) 300 mg PO DAILY [facility] Stop: 12/16/18 08:59 Last Admin: 11/16/18 08:37 Dose: 300 mg Documented by: Levothyroxine Sodium (Synthroid) 100 mcg PO DAILYBB [facility] Stop: 12/16/18 06:29 Last Admin: 11/16/18 06:13 Dose: 100 mcg Documented by: Magnesium Hydroxide (Milk Of Magnesia) 30 ml PO Q12H PRN PRN Reason: Constipation Stop: 12/15/18 15:34 Miscellaneous (Pending Order) 1 ea N/A QS [facility] Stop: 12/17/18 00:00 Multivitamins (Multivitamin Tab) 1 tab PO DAILY [facility] Stop: 12/16/18 08:59 Last Admin: 11/16/18 08:37 Dose: 1 tab Documented by: Ondansetron HCl (Zofran) 4 mg IV Q6H PRN PRN Reason: Nausea Stop: 12/15/18 15:34 Sodium Chloride ([place] Nasal) 1 sprays NA DAILY [facility] Stop: 12/16/18 08:59 Last Admin: 11/16/18 09:55 Dose: 1 sprays Documented by: Torsemide (Demadex) 20 mg PO DAILY [facility] Stop: 12/16/18 08:59 Last Admin: 11/16/18 08:37 Dose: 20 mg Documented by: Vitamin D (Vitamin D3) 2,000 units PO DAILY [facility] Stop: 12/16/18 08:59 Last Admin: 11/16/18 08:38 Dose: 2,000 units Documented by:
[2018-11-16] MEDS: [UNRECOGNIZED DRUG - REMARK] SCH (23:16)
[2018-11-17] MEDS: LEVOTHYROXINE SODIUM 100 MCG TABLET PO SCH (06:29)
[2018-11-17] MEDS: [UNRECOGNIZED DRUG - REMARK] SCH (07:28)
[2018-11-17] MEDS: ALLOPURINOL 300 MG TAB PO SCH (09:33)
[2018-11-17] MEDS: SODIUM CHLORIDE 0.65% NA SOLN 45 ML (OCEAN) SCH (09:33)
[2018-11-17] MEDS: MULTIVITAMIN TAB PO SCH (09:33)
[2018-11-17] MEDS: TORSEMIDE 10 MG TAB PO SCH (09:33)
[2018-11-17] MEDS: CHOLECALCIFEROL 1,000 UNITS TAB PO SCH (09:33)
--- NOTE | 2018-11-17 10:54 | Cardiology Progress Note ---
Date of Service November 17, 2018 Assessment & Plan (1) Eisenmenger's syndrome due to congenital ventricular septal defect: When taking torsemide 20 mg daily, she felt lightheaded and on every other day dosing, she became more short of breath. With diuresis here, she has improved symptomatically. Recommend torsemide 20 mg alternating with 10 mg daily. Would hold off on further IV diuresis today. She does not appear significantly hypervolemic on exam. Low-sodium diet. Use IV filter with any type of intravenous administration to filter out air bubbles, which could become systemic given Eisenmenger physiology. (2) VSD (ventricular septal defect): She has uncorrected perimembranous VSD. She has declined aggressive measures in the past. (3) Pulmonary HTN: Severe pulmonary hypertension from VSD, now with Eisenmenger's physiology. She has declined vasodilators in the past. She no longer wanted to follow with adult congenital heart disease physician. She prefers to follow with Dr. Hanley. She is currently receiving supplemental oxygen while hospitalized. (4) Pericardial effusion: Likely related to severe pulmonary hypertension. Poor prognosis. (5) Aortic valve disorder: We discussed this finding yesterday with her and her mother. She declined transesophageal echo to further evaluate this finding. It is not clear if the echodense mobile structure was related to her VSD or if it was attached to the aortic valve, such as vegetation or mass. ESR is normal, and blood cultures remain pending. If blood cultures are negative, this can be followed up in the future with outpatient transthoracic echo if she is agreeable. Disposition: Cardiology will continue to follow while hospitalized. We discussed potential follow-up as an outpatient however family indicated that they may continue to follow with Dr. Hanley as they are not sure if cardiology has anything further to add to her care. Care discussed with Dr. Lopez of the primary hospitalist service. Subjective She currently denies shortness of breath, chest pain, palpitations, syncope, near-syncope. She is now on supplemental oxygen. She thought that her breathing was back to her usual baseline. She is currently alone in her hospital room. Review of systems: As above. Physical Exam Physical Exam: Gen.: No acute distress. Alert. HEENT: Anicteric sclera. Cyanotic lips/nose (improved from yesterday; she is now on supplemental oxygen). Neck: No JVD. Cardiac: Possible RV heave. Regular. Normal S1-S2. 2/6 systolic murmur best heard at the left lower sternal border and apex. No rubs, or gallops. Pulmonary: Clear to auscultation bilaterally without wheezes, rales, or rhonchi. Abdomen: Soft, nontender, nondistended, with normoactive bowel sounds. No bruits noted. Extremities: No significant pitting edema. Extensive left lower extremity varicose veins. Mild right varicose veins. Cyanotic nail beds. Clubbing noted of fingers. Psychiatric: Affect appears appropriate. Results & Data Vital Signs (Past 12 Hours) Vital Signs Temp Pulse Resp BP Pulse Ox 11/17/18 07:49 36.6 C 73 16 122/77 69 L 11/17/18 03:40 74 L 11/17/18 03:30 36.7 C 66 16 121/70 62 L 11/16/18 23:15 36.8 C 67 18 129/86 72 L Intake & Output 11/15/18 11/16/18 11/17/18 11/18/18 06:59 06:59 06:59 06:59 Intake Total 120 / 120 590 / 590 Output Total 850 / 850 Balance -730 / -730 590 / 590 Weight 59.7 kg 59 kg Laboratory Results Laboratory Results - last 24 hr 11/16/18 17:50 ESR 12 Diagnostic Findings Telemetry personally reviewed: Sinus rhythm. No arrhythmia. Medications Administered Current Inpatient Medications Acetaminophen (Tylenol) 650 mg PO Q4H PRN PRN Reason: Pain or Fever Stop: 12/15/18 15:34 Allopurinol (Zyloprim) 300 mg PO DAILY [facility] Stop: 12/16/18 08:59 Last Admin: 11/17/18 09:33 Dose: 300 mg Documented by: Levothyroxine Sodium (Synthroid) 100 mcg PO DAILYBB [facility] Stop: 12/16/18 06:29 Last Admin: 11/17/18 06:29 Dose: 100 mcg Documented by: Magnesium Hydroxide (Milk Of Magnesia) 30 ml PO Q12H PRN PRN Reason: Constipation Stop: 12/15/18 15:34 Miscellaneous (Pending Order) 1 ea N/A QS [facility] Stop: 12/17/18 00:00 Last Admin: 11/17/18 07:28 Dose: Not Given Documented by: Multivitamins (Multivitamin Tab) 1 tab PO DAILY [facility] Stop: 12/16/18 08:59 Last Admin: 11/17/18 09:33 Dose: 1 tab Documented by: Ondansetron HCl (Zofran) 4 mg IV Q6H PRN PRN Reason: Nausea Stop: 12/15/18 15:34 Sodium Chloride ([place] Nasal) 1 sprays NA DAILY [facility] Stop: 12/16/18 08:59 Last Admin: 11/17/18 09:33 Dose: 1 sprays Documented by: Torsemide (Demadex) 20 mg PO DAILY [facility] Stop: 12/16/18 08:59 Last Admin: 11/17/18 09:33 Dose: 20 mg Documented by: Vitamin D (Vitamin D3) 2,000 units PO DAILY [facility] Stop: 12/16/18 08:59 Last Admin: 11/17/18 09:33 Dose: 2,000 units Documented by:
--- NOTE | 2018-11-17 14:09 | Palliative Care Consultation ---
Date of Consultation November 17, 2018 Assessment & Plan (1) Palliative care encounter: This is a 48 year old pleasant female who lives at home with her Mom and Dad presented to the [facility] with increased cyanosis and SOB. This patient has Eisenmenger's syndrome d/t congenital VSD which has been conservatively managed. Additional PMH includes: pHTN, pericardial effusion and aortic valve disorder. The patient has been conservatively managed and has declined additional invasive and non-invasive diagnostic testing. The patient with chronic cyanosis related to her Eisenmenger's syndrome and SpO2 < 60% on RA. When patient wears O2 her SpO2 increases to mid70's, which is her baseline. Patient and family requesting hospice services. Palliative Care consult placed. -I met with patient, Mom, Joleen, Dad Bethany Rodriguez from and [employer] student in the patients room. -Patient and family stating that her cyanosis has been worsening which brought them to the hospital. -The patient with decreasing SpO2 in the 50-60's on RA. Patient baseline is 70's on RA. -Patient stated that she is increasingly tired, but otherwise no real changes. -Patient requested to speak with palliative care to establish Hospice services at home and complete a POLST form. -Pt stated she does not want any additional diagnostic testing performed. -Patient does not want to wear O2 and just wants to go home and stay home. -Confirm patient to be DNR. POLST form completed indicating: DNR/DNI, Comfort measures only, trial abx, no artificial nutrition or tube feeding. -Family in support of this decision. Patient with intellect disability, but fully participating in the goals of care conversation. -[facility] discussed hospice options and [facility] was chosen, Caleb came to meet with and visit patient and family. -Discussed with IDT and plan for return home under hospice today. -PPS: 40% (2) Eisenmenger's syndrome due to congenital ventricular septal defect: (3) Pulmonary HTN: (4) Aortic valve disorder: (5) Pericardial effusion: (6) Down's syndrome: Supervising Physician Co-Signing Physician Notes Chart reviewed, patient seen and examined-patient's mother and stepfather at bedside. Patient is a pleasant 48-year-old female with Down's syndrome as well as Eisenmenger syndrome-plan is for patient to return home with hospice care PE: Patient awake and alert, no acute distress, prior cyanosis has improved HEENT: EOMI, hearing within normal limits Respiratory: Clear breath sounds bilaterally CV: Regular rate, acrocyanosis, perioral cyanosis Abdomen: Soft, nontender Extremities: Acrocyanosis, lower extremities with chronic skin changes due to poor perfusion Neuro: Alert and oriented Agree with above note, assessment and plan as per NINI Bergman-plan to have patient discharged home with hospice care. POLST form completed History of Present Illness Reason for Consultation: goals of care Requesting Physician: Dr. Lopez Attending Physician: Carlin Lopez MD History of Present Illness This is a 48 year old pleasant female who lives at home with her Mom and Dad presented to the [facility] with increased cyanosis and SOB. This patient has Eisenmenger's syndrome d/t congenital VSD which has been conservatively managed. Additional PMH includes: pHTN, pericardial effusion and aortic valve disorder. The patient has been conservatively managed and has declined additional invasive and non-invasive diagnostic testing. The patient with chronic cyanosis related to her Eisenmenger's syndrome and SpO2 < 60% on RA. When patient wears O2 her SpO2 increases to mid70's, which is her baseline. Patient and family requesting hospice services. Palliative Care consult placed. See A/P for additional information. Thank you kindly for involving us with this sweet patient and family. Allergies Allergy/AdvReac Type Severity Reaction Status Date / Time Penicillins Allergy Rash Unverified 11/15/18 12:04 Home Medications Home Medications Medication Instructions Recorded Confirmed Type allopurinol 300 mg PO DAILY 11/15/18 11/15/18 History cholecalciferol (vitamin D3) 2,000 unit PO DAILY 11/15/18 11/15/18 History [Vitamin D3] levothyroxine 100 mcg PO DAILY 11/15/18 11/15/18 History multivitamin 1 tab PO DAILY 11/15/18 11/15/18 History sodium chloride [Saline Nasal] 1 spray INTRANASAL DAILY 11/15/18 11/15/18 History torsemide 10 mg PO UD #30 tab 11/17/18 Rx torsemide 20 mg PO UD #30 tab 11/17/18 11/15/18 Rx Patient History Medical History Pulmonary hypertension (Acute) Down syndrome (Chronic) VSD (ventricular septal defect) (Chronic) Pulmonary hyperinflation (Resolved) Eisenmenger's syndrome due to congenital ventricular septal defect Family History Grandfather CHF (congestive heart failure) Social History Preferred Language: Lao Communication Ability: Effective General Foreman Required: No Beliefs That Will Affect Care: None marital status: Single Current Living Situation: Family Other Information That Helps Us Care for You: No Feels Safe at Home: Yes Smoking Status: Never smoker Hx Alcohol Use: Yes (wine once a week) Alcohol type: wine Hx Substance Use: No Review of Systems Review of Systems: All systems reviewed & are unremarkable except as noted in HPI & below Physical Exam Constitutional: + ill appearing and comfortable Eyes: PERRL, conjunctivae normal, anicteric sclerae ENMT: external ear and nose normal, oropharynx normal Neck: + short neck and + thick neck Respiratory: normal respiratory effort Auscultation: + diminished lung sounds and + rhonchi Cardiovascular: Heart Sounds: normal S1, normal S2, + murmur and + cardiac rub Vessels: + JVD and normal peripheral pulses Extremities: + edema (Trace B/L LE) and + varicosities Gastrointestinal (Abdomen): normal bowel sounds, soft, nontender, no hepatosplenomegaly Musculoskeletal: Head/Neck/Chest: normocephalic Extremities: + cyanosis and + clubbing Skin: + dry skin and + nails discolored Psychiatric: A+Ox3, euthymic affect Insight: good insight Judgement: good judgement Lymphatic: no cervical or axillary lymphadenopathy Results & Data Vital Signs (Past 12 Hours) Vital Signs Temp Pulse Resp BP Pulse Ox 11/17/18 11:47 36.8 C 80 18 157/98 H 75 L 11/17/18 07:49 36.6 C 73 16 122/77 69 L 11/17/18 03:40 74 L 11/17/18 03:30 36.7 C 66 16 121/70 62 L Time Spent Midlevel Total time spent 70 minutes with > 50% of that time spent assessing the patient, completing a polst form and discussing goals of care with family and IDT
--- NOTE | 2018-11-17 14:22 | Discharge Summary ---
Date of Service November 17, 2018 Admission HPI Per Admitting Provider 48 y/o F c/o SOB. Pt has had a cough for the last few days that has been gradually worsening. Parents thought it was due to allergies as [facility] the [facility] and pollen has been quite high this year, however it continued to worsen and then today while they were in the car, pt became frankly SOB. They called an ambulance. She did have an episode of emesis today with some abd pain, but none prior to this. Zofran in the ambulance has helped and she no longer has n/v/abd pain. Pt has no prior hx of breathing issues. She does have a known VSD and has been on turosemide for about the last year related to LE swe lling. She was initially prescribed for QD dosing, however she became dehydrated with this and it was changed to QOD dosing. Her LE swelling has not been an issue with the decreased dosing. Pt denies fever, chest pain, c/d, LE pain. Pt was given lasix in the ED and is feeling much improved. No longer SOB or even coughing. 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 Discharge Exam Patient has face and acral cyanosis she is clubbing of her fingers and toes Cardiac exam shows her to have a regular rhythm with systolic murmur lungs only a fine rales at the bases Discharge Data Allergies Allergy/AdvReac Type Severity Reaction Status Date / Time Penicillins Allergy Rash Unverified 11/15/18 12:04 Consultations 11/15/18 12:25 ED Decision to Admit Stat 11/15/18 15:35 Consult Case Management - Discharge Planning Routine 11/16/18 14:02 Consult Cardiology Routine 11/17/18 13:54 Consult Palliative Care Routine Hospital Course (1) Pulmonary edema: Likely related to progressive VSD Turosemide dosing had been QOD 20 mg alternating with QOD 10 mg due to concerns about dehydration on QD, Can determine s/p ECHO, concern to have possible valvular vegitation but concern is reduced as sed rate is low Blood cultures are pending at time of discharge (2) Elevated troponin: Likely related to demand ischemia from pulmonary edema EKG neg for acute (3) Hypoxia: Related to above and improving s/p lasix, has vsd with high pulmonary pressures and equalization of pressure in left and right ventricle, will always have a hypoxic saturation Family is offered supplemental oxygen and they refused saying the patient would not wear it (4) Down's syndrome: Stable Lives with parents, they are updated at the bedside Requests DNR/DNI and parents state it is her decision Family requested engagement of hospice care patient will go home on hospice services (5) VSD (ventricular septal defect): As noted above (6) Gout: continue home meds (7) Hypothyroid: continue home meds TSH pending (8) Pulmonary HTN: continue home meds (9) DVT prophylaxis: SCDs Total Time Total Time Spent Total Time Spent (In Minutes): greater than 30 minutes were required to prepare discharge Discharge Plan Discharge Items Patient Disposition: Hospice - Home Reason For Visit: SOB Discharge Diagnosis: heart failure from congenital heart defect Discharge Goals: Decrease discomfort and Diagnostic testing Activity: Resume your previous activity Non-emergency contact: Primary Care Provider Call non-emergency contact if: you have any medication questions Follow-up/Referrals: Sandeep Hanley MD [Primary Care Provider] - Diet: Regular Addtl Provider Instructions: Please follow up with home hospice agency and you will only need to See Dr Hanley if needed Prescriptions: Continued multivitamin Tablet 1 tab PO DAILY RF: 0 levothyroxine 100 mcg tablet 100 mcg PO DAILY RF: 0 allopurinol 300 mg tablet 300 mg PO DAILY RF: 0 sodium chloride [Saline Nasal] 0.65 % Aerosol,Acra 1 spray INTRANASAL DAILY RF: 0 cholecalciferol (vitamin D3) [Vitamin D3] 2,000 unit Capsule 2,000 unit PO DAILY RF: 0 Changed torsemide 20 mg tablet 20 mg PO UD Qty: 30 RF: 5 Discontinued clindamycin HCl 150 mg Capsule 150 mg PO DIRECTED RF: 0 Stand-Alone Forms: [facility] Discharge Orders: Discharge Order (Routine); Ordered 11/17/18 Ordered By: Carlin Lopez Admission Data Admit Date/Time: 11/15/18 14:17 Attending Provider: Carlin Lopez Admit Provider: Nitza Figueroa Primary Care Provider: Sandeep Hanley Other Providers: Nitza Figueroa ; Esa Rowan ; Vanna Collado Service: Telemetry
== END 2018-11-17 15:32 | disposition hospice, home (50) | DRG 292 ==
LOC: ED 10:47 → 2S 14:17 → SUATTDRO 14:17 → 2S 14:52